=== PATIENT | female | born 1930 | race Hispanic/Latino ===

== ENCOUNTER 2017-06-19 13:29 | Inpatient (IN) | payer MEDICARE ==
[~2017-06-19] VITALS: Ht 142.2 cm; Wt 48.5 kg
[~2017-06-19 13:29] MED LIST: ARMOUR THYROID30 MG PO; ARMOUR THYROID60 MG PO; ATENOLOL50 MG PO; ATORVASTATIN CA10 MG PO; DICYCLOMINE HCL20 MG PO; FAMOTIDINE20 MG PO; GLIPIZIDE10 MG PO; METFORMIN HCL500 MG PO
--- NOTE | 2017-06-19 14:49 | Diagnostic Imaging Report ---
PROCEDURE:CHEST SINGLE (NOT PORTABLE) TECHNIQUE:Portable AP chest INDICATION:Hip fracture COMPARISON:[facility], DX, CHEST XRAY POST PROCEDURE, 04/02/2017, 13:33. FINDINGS: Low lung volume with bibasilar interstitial scar. Grossly normal cardiomediastinal silhouette given positioning and technique. Aortic arch calcification. Grossly intact skeleton. CONCLUSION: No acute abnormality. Study limited by positioning and portable technique. Dictated by: Harjeet Menon M.D. on 06/19/2017 at 14:58 Electronically approved by: Harjeet Menon M.D. on 06/19/2017 at 14:58
[2017-06-19] MEDS ORDERED: ONDANSETRON HCL INJ 2 MG/ML VIAL IV STA (15:41)
[2017-06-19] MEDS ORDERED: MORPHINE SULFATE 4 MG/ML SYR IV STA (15:41)
[2017-06-19 15:51] LABS: BASOPHILS % 0.2 % (0.0-1.0); EOSINOPHILS % 0.2 % (0.0-6.0); HEMATOCRIT 26.9 % (34.2-44.1); HEMOGLOBIN 8.9 g/dL (12.0-16.0); LYMPHOCYTES # (AUTO) 0.6 (1.0-3.2); LYMPHOCYTES % 4.7 % (18.0-39.1); MEAN CORPUSCULAR HEMOGLOBIN 29.9 pg (28-32); MEAN CORPUSCULAR HGB CONC 33.1 g/dL (31-35); MEAN CORPUSCULAR VOLUME 90.3 fL (81-99); MONOCYTES # (AUTO) 0.8 (0.2-0.8); MONOCYTES % 6.4 % (4.4-11.3); NEUTROPHILS # (AUTO) 11.1 (2.1-6.9); NEUTROPHILS % 87.6 % (38.7-80.0); PLATELET COUNT 284 x10e3/uL (140-360); RED BLOOD COUNT 2.98 x10e6/uL (3.6-5.1); RED CELL DISTRIBUTION WIDTH 14.3 % (11.7-14.4)
[2017-06-19 15:52] LABS: BILIRUBIN,URINE NEGATIVE (NEGATIVE); KETONES,URINE TRACE (NEGATIVE); LEUKOCYTE ESTERASE ,URINE 2+ (NEGATIVE); NITRITE,URINE NEGATIVE (NEGATIVE); PROTEIN,URINE DIPSTICK NEGATIVE (NEGATIVE); URINE UROBILINOGEN 0.2 mg/dL (0.2 - 1)
[2017-06-19 15:54] LABS: CLARITY,URINE SL CLOUDY (CLEAR); COLOR,URINE YELLOW (YELLOW)
[2017-06-19 16:04] LABS: ALBUMIN 2.6 g/dL (3.5-5.0); ALBUMIN/GLOBULIN RATIO 0.5 (0.8-2.0); ANION GAP 18.5 mmol/L (8-16); CALCIUM 9.5 mg/dL (8.4-10.2); CREATININE, SERUM 1.65 mg/dL (0.57-1.11); POTASSIUM 5.5 mmol/L (3.5-5.1)
[2017-06-19 16:09] LABS: EPITHELIAL CELLS,URINE FEW /LPF; RBC,URINE 0-5 /HPF (0-5); URIC ACID CRYSTALS,URINE MODERATE (FEW)
--- NOTE | 2017-06-19 17:37 | Diagnostic Imaging Report ---
PROCEDURE:HIP LEFT 2-3 VW (+/- PELVIS) TECHNIQUE:Portable AP and lateral images of the left hip obtained INDICATION:Fracture COMPARISON:CT abdomen/pelvis 04/01/17 FINDINGS: The bones are diffusely demineralized. There is a comminuted intertrochanteric fracture of the left femur with medial angulation of the distal fracture fragment. The femoral head remains properly positioned within the acetabulum. There is an acute fracture of the left inferior pubic ramus. Healed fracture deformity of the right pubic symphysis is stable. No diastases of the pubic symphysis. The right hip is intact and normally situated. There are degenerative changes of the lower lumbar spine. Atherosclerotic calcifications are present throughout the aorta and iliac vessels. The visualized bowel gas pattern is unremarkable. CONCLUSION: 1. Acute, comminuted intertrochanteric fracture of the left femur as described above. 2. Acute fracture of the left inferior pubic ramus. 3. Healed fracture deformity of the right pubic symphysis. Dictated by: Orin Mackey M.D. on 06/19/2017 at 17:46 Electronically approved by: Orin Mackey M.D. on 06/19/2017 at 17:46
[2017-06-19] MEDS ORDERED: MORPHINE SULFATE 2 MG/ML SYR IV SCH (18:00)
[2017-06-19] MEDS ORDERED: SODIUM CHLORIDE FLUSH 10 ML SYR INJ PRN (18:00)
[2017-06-19] MEDS: ONDANSETRON HCL INJ 2 MG/ML VIAL IV PRN (18:37)
[2017-06-19 19:12] LABS: ANION GAP 20.4 mmol/L (8-16); CALCIUM 9.3 mg/dL (8.4-10.2); CREATININE, SERUM 1.64 mg/dL (0.57-1.11); POTASSIUM 5.4 mmol/L (3.5-5.1)
[2017-06-19] MEDS ORDERED: SODIUM CHLORIDE 0.9% 1000ML 1,000 ML IV SCH (19:45)
[2017-06-19] MEDS ORDERED: ONDANSETRON HCL INJ 2 MG/ML VIAL IV PRN (19:45)
[2017-06-19] MEDS ORDERED: ACETAMINOPHEN 325 MG TAB PO PRN (19:45)
[2017-06-19] MEDS ORDERED: DEXTROSE 50% SYRINGE 50 ML IV PRN (19:45)
--- NOTE | 2017-06-19 20:24 | History and Physical ---
CHIEF COMPLAINT: Fall. HISTORY OF PRESENT ILLNESS: An 86-year-old female with stage IV colon cancer with an ostomy who is currently on hospice care at home who presents today after having a mechanical fall on landing on her left hip. Since then, the patient has not been able to eat with decreased oral intake and severe pain. Family reports that she has not been able to ambulate since that fall. The patient denies any cough, congestion or any other complaints at this time. Family reports that she uses a walker for ambulation. The patient was seen and evaluated at bedside in the ER. Currently severely dehydrated. Did not get any IV fluids in the ER. REVIEW OF SYSTEMS: Pertinent positive: Mechanical fall and dehydration. Decreased oral intake. Pertinent negative: Denies any chest pain, palpitations, nausea, vomiting, diarrhea, dysuria, hematuria, frequency, urgency, lightheadedness, dizziness, abdominal pain, headache, shortness of breath or any other complaints. The rest of the 14-point review of systems have been reviewed. ALLERGIES: NO KNOWN DRUG ALLERGIES. MEDICATIONS: See medication reconciliation form. PAST MEDICAL HISTORY: Stage IV colon cancer, not on chemotherapy due to poor prognosis and on hospice care, hypertension, debilitated, deconditioned, on hospice care. PAST SURGICAL HISTORY: Has an ostomy. FAMILY HISTORY: Hypertension and diabetes. SOCIAL HISTORY: She lives with family. No smoking, no drugs, no alcohol. LABORATORY DATA: Sodium 132, potassium 5.4, chloride 104, bicarbonate 13, anion gap of 20, BUN 58, creatinine 1.6. White count 12.6, hemoglobin 8.9, hematocrit 27 and platelets of 284,000. Urinalysis is 2+ leukocyte esterase, negative nitrites. IMAGING: Show chest x-ray with no acute abnormalities. She has an x-ray of the hip that shows acute comminuted intertrochanteric fracture of the left femur and acute fracture of the left inferior pubic rami. PHYSICAL EXAMINATION VITAL SIGNS: She is afebrile. Blood pressure stable. GENERAL: Looks severely dehydrated on examination. Dry oral mucosa, dry cracked lips with skin tinting. HEENT: Head is normocephalic, atraumatic. Eyes: Pupils equal, round and reactive to light bilaterally. Extraocular movements intact bilaterally. Throat with no evidence of erythema or exudates in the posterior pharynx. Has poor dentition. NECK: Supple with good range of motion. PULMONARY: Clear to auscultation bilaterally with no wheezing or rales or rhonchi. No crackles appreciated. CARDIOVASCULAR: Positive S1 and S2, no murmurs, rubs or gallops appreciated. ABDOMEN: Soft, nondistended, nontender on palpation. Bowel sounds were present. MUSCULOSKELETAL: Unable to assess the left femur due to the patient having severe pain. SKIN: Intact. Warm to touch. Decreased capillary refill. Has skin tinting. EXTREMITIES: No edema. Range of motion is appreciated. IMPRESSION 1. Acute comminuted intertrochanteric femur fracture on the left side. 2. Acute fracture of the left inferior pubic rami. 3. Stage IV metastatic colon cancer on home hospice care. 4. Deconditioned and debilitated. 5. Has an ostomy. 6. Severe dehydration. 7. Mild hyperkalemia. 8. Metabolic acidosis. PLAN: At this time, the patient needs IV fluid bolus including IV fluid maintenance at 100 mL per hour. Repeat labs in the morning. Pain control. Orthopedics consulted. The patient is likely not a candidate for any surgical intervention due to the patient's hospice needs at this time. There are 2 family members at bedside who are 2 daughters, but the medical power of business attorney is one of the brothers, according to the family members and they need to produce the documents for us to make any further medical decisions on their behalf. At this time, there are no documents for me to go on, and for us to determine if there is any sort of intervention needed. Will continue with pain control. I could not come up with the code status at this time. So, the patient will be at full code. I will continue to monitor pain control, IV fluids and further evaluate. Job#: [id number]
[2017-06-19 20:30] VITALS: BP 138/66
[2017-06-19] MEDS: INSULIN REGULAR, HUMAN 100 UNIT/1 ML 3ML VIAL SQ SCH (21:00)
[2017-06-19 21:40] VITALS: BP 138/66
[2017-06-19] MEDS ORDERED: BUPROPION HCL75 MG PO (22:44)
[2017-06-19] MEDS ORDERED: [UNRECOGNIZED DRUG - OTHER] PO (22:44)
[2017-06-19] MEDS ORDERED: LORAZEPAM0.5 MG PO (22:44)
[2017-06-19] MEDS ORDERED: PANTOPRAZOLE SO40 MG PO (22:44)
[2017-06-19] MEDS ORDERED: TEMAZEPAM15 MG PO (22:45)
[2017-06-19] MEDS: DEXTROSE 5%/0.9% SOD CHL 1,000 ML IV SCH (23:10)
[2017-06-19] MEDS: MORPHINE SULFATE 2 MG/ML SYR IV PRN (23:10)
[2017-06-20] VITALS (8 sets, daily range): BP systolic 122–138; BP diastolic 65–74
[2017-06-20] MEDS: DEXTROSE 5%/0.9% SOD CHL 1,000 ML IV SCH ×3 (05:27→20:46)
[2017-06-20 07:55] LABS: BASOPHILS % 0.1 % (0.0-1.0); EOSINOPHILS # (AUTO) 0.2 (0.0-0.4); EOSINOPHILS % 2.4 % (0.0-6.0); HEMATOCRIT 23.7 % (34.2-44.1); LYMPHOCYTES % 10.2 % (18.0-39.1); MEAN CORPUSCULAR HGB CONC 33.3 g/dL (31-35); MEAN CORPUSCULAR VOLUME 90.1 fL (81-99); MONOCYTES # (AUTO) 0.8 (0.2-0.8); MONOCYTES % 8.8 % (4.4-11.3); NEUTROPHILS # (AUTO) 7.4 (2.1-6.9); NEUTROPHILS % 77.9 % (38.7-80.0); PLATELET COUNT 282 x10e3/uL (140-360); RED BLOOD COUNT 2.63 x10e6/uL (3.6-5.1); RED CELL DISTRIBUTION WIDTH 14.3 % (11.7-14.4)
[2017-06-20 08:10] LABS: HEMOGLOBIN 7.9 g/dL (12.0-16.0)
[2017-06-20 08:14] LABS: ANION GAP 10.6 mmol/L (8-16); CALCIUM 8.5 mg/dL (8.4-10.2); CREATININE, SERUM 1.16 mg/dL (0.57-1.11); POTASSIUM 4.6 mmol/L (3.5-5.1)
--- NOTE | 2017-06-20 08:29 | Consultation ---
DATE OF CONSULTATION: June 20, 2017 CHIEF COMPLAINT: Left hip pain. HISTORY OF PRESENT ILLNESS: The patient is an 86-year-old lady who has terminal colon cancer. She has been on Hospice for the past month. Approximate 4 days prior to admission, she fell from a standing height. She was a very limited ambulatory with a walker. The Hospice nurse provided some care at home. She ultimately was brought into the hospital where she was noted to be dehydrated and had a left hip fracture. PAST MEDICAL HISTORY: Please see admission H and P. PHYSICAL EXAMINATION GENERAL: She is awake, but does not answer questions. Her daughter is present and answers and provides all the history. The patient appears cachectic. EXTREMITIES: She is holding her left lower extremity in a shortened and externally rotated position. There are no puncture wounds or abrasions. There is some bruising around the thigh and extending down the leg. LABORATORY STUDIES: X-rays show a severely comminuted left intertrochanteric fracture. IMPRESSION: Left hip fracture. The patient is on terminal Hospice care for colon cancer. There are no benefits of surgical stabilization of the left hip. This has been explained to the daughter who is in agreement. Supportive and comfort care will be provided. Thank you for the consultation. Job#: [id number] RI CHIEF COMPLAINT: Left hip pain is. HISTORY OF PRESENT ILLNESS: The patient is an 86-year-old lady who has terminal colon cancer. She has been on hospice for the past month. Approximate 4 days prior to admission she fell from a standing height. She was can be weightbearing as tolerated with a walker. She the office nurse provide some care at home. She ultimately was brought and to the hospital or she was noted to be t titrated and have a left hip fracture. Past medical history please see admission H and P. PHYSICAL EXAM: She is awake. But does not answer questions. Her daughter is present and answers and provide fell a history. The patient appears cachectic. She has been a good. She is holding her left lower extremity and a shortened and externally rotated. DISPOSITION: There are no puncture wounds or abrasions. There are some bruising around the [place] extending down the leg. LABORATORY STUDIES: X-rays show a severely comminuted left intertrochanteric fracture impression left hip fracture. The patient had this on terminal hospice care for colon cancer. There are no benefits of a surgical stabilization of the left hip. This has been explained to the daughter who is in agreement. Supportive and comfort care. Will be provided. Thank you for the consultation. ASHLEY WILSON MD Job#: [id number] RI
[2017-06-20] MEDS: INSULIN REGULAR, HUMAN 100 UNIT/1 ML 3ML VIAL SQ SCH ×4 (08:47→20:36)
[2017-06-20] MEDS: ONDANSETRON HCL INJ 2 MG/ML VIAL IV PRN (12:18)
[2017-06-20] MEDS: MORPHINE SULFATE 2 MG/ML SYR IV PRN ×3 (12:18→20:46)
[2017-06-20] MEDS ORDERED: MELATONIN 5 MG TABLET PO SCH (21:00)
[2017-06-21] VITALS (7 sets, daily range): BP systolic 136–182; BP diastolic 69–90
[2017-06-21] MEDS: MORPHINE SULFATE 2 MG/ML SYR IV PRN ×4 (00:48→16:50)
[2017-06-21] MEDS: DEXTROSE 5%/0.9% SOD CHL 1,000 ML IV SCH ×2 (03:57→12:02)
[2017-06-21] MEDS: ONDANSETRON HCL INJ 2 MG/ML VIAL IV PRN ×3 (07:33→16:50)
[2017-06-21 07:36] LABS: BASOPHILS % 0.2 % (0.0-1.0); EOSINOPHILS # (AUTO) 0.2 (0.0-0.4); HEMATOCRIT 23.5 % (34.2-44.1); LYMPHOCYTES # (AUTO) 0.5 (1.0-3.2); LYMPHOCYTES % 8.4 % (18.0-39.1); MEAN CORPUSCULAR HEMOGLOBIN 29.7 pg (28-32); MEAN CORPUSCULAR HGB CONC 32.3 g/dL (31-35); MEAN CORPUSCULAR VOLUME 91.8 fL (81-99); MONOCYTES # (AUTO) 0.4 (0.2-0.8); MONOCYTES % 6.4 % (4.4-11.3); NEUTROPHILS % 81.3 % (38.7-80.0); PLATELET COUNT 201 x10e3/uL (140-360); RED BLOOD COUNT 2.56 x10e6/uL (3.6-5.1); RED CELL DISTRIBUTION WIDTH 14.6 % (11.7-14.4)
[2017-06-21 07:43] LABS: HEMOGLOBIN 7.6 g/dL (12.0-16.0)
[2017-06-21 08:12] LABS: ANION GAP 9.5 mmol/L (8-16); BLOOD UREA NITROGEN 22 mg/dL (7-26); BUN/CREATININE RATIO 32 (6-25); CALCIUM 8.2 mg/dL (8.4-10.2); CARBON DIOXIDE 18 mmol/L (22-29); CHLORIDE 114 mmol/L (98-107); CREATININE, SERUM 0.69 mg/dL (0.57-1.11); EST GLOMERULAR FILTRATION RATE > 60 ML/MIN (60-); GLUCOSE 243 mg/dL (74-118); POTASSIUM 3.5 mmol/L (3.5-5.1); SODIUM 138 mmol/L (136-145)
[2017-06-21] MEDS: INSULIN REGULAR, HUMAN 100 UNIT/1 ML 3ML VIAL SQ SCH ×3 (08:47→16:13)
[2017-06-21 11:32] LABS: BAND NEUTROPHILS % (MANUAL) 2 %; EOSINOPHILS % (MANUAL) 4 % (0-7); LYMPHOCYTES % (MANUAL) 15 % (19-48); MONOCYTES % (MANUAL) 1 % (3.4-9.0); NEUTROPHILS % (MANUAL) 78 % (40-74)
[2017-06-21 11:33] LABS: PLATELET ESTIMATE ADEQUATE; PLATELET MORPHOLOGY COMMENT NORMAL; RBC MORPHOLOGY COMMENT NORMAL
--- NOTE | 2017-06-22 23:33 | Discharge Summary ---
FINAL DISCHARGE DIAGNOSES: 1. Acute left femur fracture, left pubic rami fracture. 2. Stage 4 colon cancer, on hospice. 3. Severe dehydration. 4. Debilitated and deconditioned. CONSULTANTS: Orthopedics. VITAL SIGNS: Temperature is 96.6, pulse is 88, respiratory rate is 18, blood pressure 136/69, pulse ox 98% on room air. LAB FINDINGS: White count is 6.1, hemoglobin is 7.6, hematocrit is 23, MCV 91, platelets of 201,000. Chemistry: Sodium 138, potassium 3.5, chloride 114, bicarb is 18, anion gap of 9, BUN is 22, creatinine is 0.69, glucose of 243, calcium is 8.2. LFTs were normal. Albumin was 2.6. Urinalysis 2+ leukocyte esterase, negative nitrite. MICROBIOLOGY: None. IMAGING STUDIES: Chest x-ray shows no acute abnormality. Hip x-ray showed acute comminuted intertrochanteric fracture of the left femur and acute fracture of the left inferior pubic rami. HOSPITAL COURSE: This is an 86-year-old female who has stage 4 colon cancer, on hospice care, who apparently had a mechanical fall on landing on her left hip. Patient presented to the ER due to worsening pain, which imaging studies was consistent with a left intertrochanteric femur fracture as well as a left pubic rami fracture. Patient was admitted under observation and orthopedics was consulted. Due to the patient's multiple comorbidities and currently on hospice care, orthopedic recommends no surgical intervention needed and recommends just pain control. Family discussed this plan of care with the orthopedic surgeon. Family verbalized understanding and agrees with plan of care. While here, patient was treated for severe dehydration with IV fluids with much improvement. Patient had significant amount of urine output and was tolerating diet well. On discharge, patient was doing well, tolerating diet with no other complaints. Pain was well controlled prior to discharge home. On the day of discharge, vital signs were stable, labs reviewed and stable. Patient was seen and evaluated and examined thoroughly on the day of discharge with no other complaints. Patient's family and patient verbalized understanding and agrees with plan of care as discussed with them with orthopedics recommendations and needs to follow up with PCP as an outpatient. MEDICATIONS: See med reconciliation form. Patient will continue with pain management via [employer], which has been arranged. CONDITION: Guarded. DISPOSITION: Home with hospice care. DIET: Regular. FOLLOWUP: Patient is to follow up with hospice care physician for further management and pain control. In the event of any worsening symptoms, patient advised to come back to the ED for further evaluation. Discharge summary took greater than 35 minutes. DASHA MEEK MD Job#: [id number]
== END 2017-06-21 18:26 | disposition hospice, home (50) | DRG 964 ==
LOC: ER 13:29 → MED/SURG 19:32
PROVIDERS: ADMIT Internal Medicine; ATTEND Internal Medicine
DX: S72.142A Displaced intertrochanteric fracture of left femur, initial encounter for closed fracture (principal); C18.9 Malignant neoplasm of colon, unspecified; S32.592A Other specified fracture of left pubis, initial encounter for closed fracture; E87.2 Acidosis; E86.0 Dehydration; E87.5 Hyperkalemia; R53.81 Other malaise; W01.0XXA Fall on same level from slipping, tripping and stumbling without subsequent striking against object, initial encounter; Y92.019 Unspecified place in single-family (private) house as the place of occurrence of the external cause; Z93.3 Colostomy status; Z51.5 Encounter for palliative care
CPT/HCPCS: 36415; 71010; 80048; 80053; 81001; 82948; 85025; 93005; 96360; 96361; 99284; J2270; J2405; J7030; J7042